=== PATIENT | male | born 1960 | race Caucasian/White ===

== ENCOUNTER 2020-05-28 16:03 | Emergency (ER) | payer OTHER ==
[~2020-05-28] VITALS: Ht 182.9 cm; Wt 95.4 kg
--- NOTE | 2020-05-28 17:12 | NUR ---
PT GIVES HORMONE REPLACEMENT SHOTS AT HOME. PT GAVE SHOT TO RIGHT THIGH FRIDAY, WITH 0.5 ML OF AIR. REDNESS NOTED FRIDAY MORNING. PT 6 HR FLIGHT ON FRIDAY, RETURNED THIS AFTERNOON. REDNESS SLOWLY INCREASING. PT CONNECTED TO MONITORING. CALL LIGHT IN REACH. FAMILY AT BEDSIDE.
[2020-05-28] MEDS ORDERED: SODIUM CHLORIDE FLUSH 10ML SYR IVF ONE (18:00)
[2020-05-28] MEDS ORDERED: CEFTRIAXONE PMX 1GM/50ML 50 ML IVPB ONE (18:00)
[2020-05-28] MEDS ORDERED: CEFTRIAXONE PMX 1GM/50ML 50 ML ONE (18:12)
[2020-05-28 18:21] LABS: BASOPHILS % (AUTO) 1 % (0-1); EOSINOPHILS % (AUTO) 1 % (1-7); LYMPHOCYTES % (AUTO) 7 % (22-44); MEAN CORPUSCULAR HEMOGLOBIN 33.5 pg (27.5-34.5); MEAN CORPUSCULAR HGB CONC 35.2 g/dL (33.2-36.2); MEAN PLATELET VOLUME 7.1 fL (7.4-10.4); MONOCYTES % (AUTO) 6 % (2-9); NEUTROPHILS % (AUTO) 86 % (42-75); PLATELET COUNT 153 x10^3/uL (130-400); RED BLOOD COUNT 5.04 x10^6/uL (4.38-5.82); RED CELL DISTRIBUTION WIDTH 13.4 % (9.4-14.8)
[2020-05-28 18:23] LABS: MD NO
--- NOTE | 2020-05-28 18:27 | NUR ---
PIV PLACED. 2 SETS BLOOD CX DRAWN. IV ABX STARTED AFTER BLOOD CX. PT TO US.
[2020-05-28 18:33] LABS: ALBUMIN 3.1 g/dL (3.4-5.0); ANION GAP 9 mmol/L (5-15); CALCIUM 8.3 mg/dL (8.5-10.1); CHLORIDE 106 mmol/L (98-107); CREATININE 1.05 mg/dL (0.7-1.3)
--- NOTE | 2020-05-28 19:15 | NUR ---
Ericka granado in EDM - 05/28/20 at 1916 by YEN REPORT FROM [facility] IN NAD AT THIS [facility], HEPARIN GTT STARTED AND ANTI XA ORDERED FOR 6 HOURS BY LAB
[2020-05-28 19:40] VITALS: BP 137/82
--- NOTE | 2020-05-28 19:42 | NUR ---
Patient given discharge instructions and they have confirmed that they understand the instructions. Patient ambulatory with steady gait.
== END 2020-05-28 20:10 | disposition home or self-care (01) ==
LOC: ED 18:18
DX: L03.115 Cellulitis of right lower limb (principal); M79.651 Pain in right thigh
CPT/HCPCS: 36415; 80048; 82040; 83605; 85025; 87040; 93971; 96365; 99284; J0696